=== PATIENT | female | born 1995 | race Caucasian/White ===

== ENCOUNTER 2017-08-24 16:39 | Emergency (ER) | payer BC ==
[2017-08-24] MEDS ORDERED: NS 1,000 ML IV ONE (17:41)
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
[2017-08-24] MEDS ORDERED: ONDANSETRON 4 MG/2 ML VIAL ONE (17:44)
[2017-08-24 17:49] LABS: PLATELET COUNT 279 10^3/uL (150-400)
--- NOTE | 2017-08-24 17:52 | CPEKG ---
Heart Rate: 79 RR Interval: 759 P-R Interval: 160 QRSD Interval: 104 QT Interval: 436 QTC Interval: 500 P Fargo: 44 QRS Fargo: 40 T Wave Fargo: 47 EKG Severity - ABNORMAL ECG - EKG Impression: SINUS RHYTHM EKG Impression: PROLONGED QT INTERVAL Electronically Signed By: Arjun Etaon 24-Aug-2017 18:37:22
[2017-08-24 21:05] VITALS: BP 120/70; PULSE 84; RESP 14; TEMP 98.2; O2SAT 96
== END 2017-08-24 21:06 | disposition home or self-care (01) ==
DX: R42 Dizziness and giddiness (principal); E86.9 Volume depletion, unspecified
CPT/HCPCS: G0480; J2405

== ENCOUNTER 2018-07-03 12:43 | Emergency (ER) | payer BC ==
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
[2018-07-03] MEDS ORDERED: ONDANSETRON 4 MG/2 ML VIAL IVP ONE (13:09)
[2018-07-03] MEDS ORDERED: NS 1,000 ML IV ONE ×3 (13:09→14:17)
[2018-07-03] MEDS ORDERED: KETOROLAC 30 MG/1 ML SDV IVP ONE (13:09)
[2018-07-03 13:10] LABS: PLATELET COUNT 285 10^3/uL (150-400)
--- NOTE | 2018-07-03 13:53 | CPEKG ---
Test Reason : OPEN Blood Pressure : / mmHG Vent. Rate : 067 BPM Atrial Rate : 068 BPM P-R Int : 129 ms QRS Dur : 105 ms QT Int : 439 ms P-R-T Axes : 004 028 047 degrees QTc Int : 464 ms Sinus rhythm Confirmed by Jaydon Reynoso ([id number]) on 07/03/2018 1:53:12 PM Referred By: Confirmed By:Jaydon Reynoso
[2018-07-03 16:01] VITALS: BP 126/80
== END 2018-07-03 16:10 | disposition home or self-care (01) ==
DX: R55 Syncope and collapse (principal); E86.0 Dehydration; N30.01 Acute cystitis with hematuria
CPT/HCPCS: 96374; J1885; J2405